=== PATIENT | female | born 1945 | race Caucasian/White ===

== ENCOUNTER 2016-04-01 17:45 | Emergency (ER) | payer OTHER ==
[~2016-04-01] VITALS: Ht 152.4 cm; Wt 40.9 kg
[~2016-04-01 17:45] MED LIST: CALCIUM 500 MG1 EACH PO; CITRACAL + D PO; ENDOCET 5-3251 EACH PO; FEROSUL325 MG PO; KEFLEX500 MG PO; LEXAPRO5 MG PO; LOVENOX40 MG/0.4 SC; SENNA-TIME S T1 EACH PO; THERAGRAN1 TABLET PO; Tums,OsCal PO; VITAMIN D1000 INTUN PO
[2016-04-01 18:50] LABS: EOSINOPHIL (%) 0.1 % (0-5); HEMATOCRIT 32.4 % (36.0-46.0); IMMATURE GRANULOCYTE (%) 0.3 % (0.0-0.7); IMMATURE GRANULOCYTE COUNT 0.5 K/uL; LYMPHOCYTE COUNT 1.1 K/uL (1.0-2.8); MCH 28.7 PG (29.0-34.0); MCHC 33.6 G/DL (30.0-36.0); MCV 85.3 FL (83-99); MONOCYTE (%) 5.4 % (3-12); MONOCYTE COUNT 0.9 K/uL (0-0.8); NEUTROPHIL (%) 86.9 % (45-76); NEUTROPHIL COUNT 13.8 K/uL (1.8-6.4); PLATELET COUNT 280 K/uL (156-360); RBC DIS.WIDTH-CV 12.8 % (11.8-14.6); RBC DIS.WIDTH-SD 38.4 % (39-53); WHITE BLOOD COUNT 15.9 K/uL (4.1-10.2)
[2016-04-01 18:58] LABS: CHLORIDE 105 mEq/L (99-109); POTASSIUM 3.9 mEq/L (3.7-5.4); SODIUM 143 mEq/L (136-147)
[2016-04-01 19:00] LABS: GLUCOSE 127 mg/dL (70-99)
[2016-04-01 19:01] LABS: PROTHROMBIN TIME 10.1 (9.2-11.2); PTT 22.5 (25-32)
[2016-04-01 19:02] LABS: ANION GAP 10 MEQ/L (2-14)
[2016-04-01 19:04] LABS: GFR ESTIMATE (CALCULATED) > 59 mL/min/
[2016-04-01 19:05] LABS: UREA NITROGEN (BUN) 16 mg/dL (9-23)
[2016-04-01] MEDS ORDERED: LOPRESSOR25 MG PO (21:09)
[2016-04-01] MEDS ORDERED: LO-DOSE ASPIRIN81 M2 PO (21:09)
[2016-04-01 22:14] VITALS: BP 98/51
== END 2016-04-01 22:17 | disposition short-term general hospital (02) ==
LOC: EME → TRA 17:45 → EME 17:45 → EDBD 17:45 → TRA 22:17
PROVIDERS: Emergency Medicine
DX: M97.01XA Periprosthetic fracture around internal prosthetic right hip joint, initial encounter (principal); W01.0XXA Fall on same level from slipping, tripping and stumbling without subsequent striking against object, initial encounter; Y92.010 Kitchen of single-family (private) house as the place of occurrence of the external cause; I10 Essential (primary) hypertension; Z96.641 Presence of right artificial hip joint
CPT/HCPCS: 72170; 73552; 80048; 85025; 85610; 85730; 86850; 86900; 86901; 93005; 99281; 99285; J2270; J2405; J3010; J7040